=== PATIENT | male | born 2000 | race African-American/Black ===

== ENCOUNTER → 2018-09-23 | Outpatient (CLI) | payer OTHER ==
--- NOTE | 2018-09-23 15:27 | Diagnostic Imaging Report ---
Indication: Fall with left wrist pain. AP, oblique, and lateral views of the left wrist are obtained. No fracture or acute bony abnormality is seen. Impression: Negative left wrist. Dictated by: Dictated on workstation # [id number]
== END ==
LOC: RAD FS 15:16
PROVIDERS: ATTEND Nurse Practitioner
DX: M25.532 Pain in left wrist (principal); W19.XXXA Unspecified fall, initial encounter
CPT/HCPCS: 73110

== ENCOUNTER → 2018-10-07 | Outpatient (CLI) | payer OTHER ==
--- NOTE | 2018-10-07 11:44 | Diagnostic Imaging Report ---
INDICATION: Followup left wrist fracture. TIME OF EXAM: 11:13 AM Correlation is made with prior exam from 09/23/2018. FINDINGS: Distal radius and ulna appear to be intact. Carpus and metacarpals are intact. No definite fracture is seen. IMPRESSION: No acute bony abnormality is detected. Dictated by: Dictated on workstation # [id number]
== END ==
LOC: RAD FS 11:07
PROVIDERS: ATTEND Nurse Practitioner
DX: S52.515D Nondisplaced fracture of left radial styloid process, subsequent encounter for closed fracture with routine healing (principal)
CPT/HCPCS: 73110

== ENCOUNTER → 2018-10-21 | Outpatient (CLI) | payer OTHER ==
--- NOTE | 2018-10-21 09:50 | Diagnostic Imaging Report ---
PATIENT HISTORY: NONDISPLACED FRACTURE OF LEFT RADIAL STYLOID PROCESS. TECHNIQUE: 2 views of the left wrist COMPARISON: 10/07/2018 FINDINGS: No acute fracture is seen in the left wrist. Alignment appears normal. There is a small ossification adjacent to the ulnar styloid process which may be from remote trauma. This appears stable since the prior exam. There is mild soft tissue edema about the left wrist. The pronator fat pad is not displaced. IMPRESSION: No acute fracture seen in the left wrist. Small ossific fragment at the ulnar styloid process may be due to remote trauma. There is mild soft tissue edema about the left wrist. Dictated by: Dictated on workstation # [id number]
== END ==
LOC: RAD FS 09:37
PROVIDERS: ATTEND Nurse Practitioner
DX: S52.515A Nondisplaced fracture of left radial styloid process, initial encounter for closed fracture (principal)
CPT/HCPCS: 73100

== ENCOUNTER → 2018-10-29 | Outpatient (CLI) | payer OTHER ==
--- NOTE | 2018-10-29 13:52 | Diagnostic Imaging Report ---
EXAMINATION: Left wrist. INDICATION: Injury, wrist pain. FINDINGS: Four views were obtained. The prior exam of 10/21/2018 noted a small ossific density adjacent to the ulnar styloid. This is felt to be most likely due to prior trauma. On this exam that density is again evident and no different. There is no other fracture or acute bony abnormality appreciated. The radiocarpal joint is well maintained. The soft tissues are unremarkable. IMPRESSION: 1. There is no evidence for an acute bony abnormality. When compared to the prior study, there has been no significant change. 2. If clinical concern regarding an underlying abnormality persists, then MRI should be considered for further evaluation. Dictated by: Dictated on workstation # [id number]
== END ==
LOC: RAD FS 09:14
PROVIDERS: ATTEND Nurse Practitioner
DX: S69.92XA Unspecified injury of left wrist, hand and finger(s), initial encounter (principal)
CPT/HCPCS: 73110